=== PATIENT | female | born 1970 | race African-American/Black ===

== ENCOUNTER 2017-09-07 21:57 | Emergency (ER) | payer OTHER, SELFPAY | END 2017-09-07 22:28 | disposition home or self-care (01) | LOC: SCSER 21:57 | DX: I10 Essential (primary) hypertension (principal) | CPT/HCPCS: 99283 ==

== ENCOUNTER 2017-12-11 09:51 | Emergency (ER) | payer OTHER, SELFPAY ==
[2017-12-11] MEDS ORDERED: Acetaminophen 500 MG TAB ONE (10:34)
[2017-12-11 10:59] LABS: #Basophils 0.1 thou/uL (0.0-0.2); #Eosinphils 0.1 thou/uL (0.0-0.7); #Monocytes 0.4 thou/uL (0.11-0.59); #Neutrophils 3.4 thou/uL (1.40-6.50); %Eosinophils 2.3 % (0.0-10.0); %Lymphocytes 33.3 % (21.0-51.0); %Monocytes 6.2 % (0.0-10.0); %Neutrophils 57.1 % (42.0-75.0); Hemoglobin 11.9 g/dL (12.0-16.0); Mean Corpuscular Hemoglobin 30.1 pg (27.0-31.0); Mean Corpuscular Volume 91.2 fL (78.0-98.0); Mean Platelet Volume 7.9 fL (7.4-10.4); Platelet Count 230 thou/uL (130-400); RBC Distribution Width 11.4 % (11.5-14.5); Red Blood Cell (RBC) Count 3.94 mill/uL (4.20-5.40)
[2017-12-11 11:12] LABS: ALT (SGPT) 14 U/L (8-55); AST (SGOT) 16 U/L (5-34); Albumin 3.4 g/dL (3.5-5.0); Alkaline Phosphatase 55 U/L (40-150); Anion Gap 9 mmol/L (10-20); BUN (Urea Nitrogen) 13 mg/dL (7.0-18.7); Bilirubin, Total 0.2 mg/dL (0.2-1.2); Calc. Creatinine Clearance 0 mL/min (70-130); Calcium 8.8 mg/dL (7.8-10.44); Carbon Dioxide 25 mmol/L (22-29); Chloride 107 mmol/L (98-107); Estimated GFR-MDRD Greater than 90; Globulin 3.3 g/dL (2.4-3.5); Glucose 85 mg/dL (70-105); Potassium 3.9 mmol/L (3.5-5.1); Protein, Total 6.7 g/dL (6.0-8.3); Sodium 137 mmol/L (136-145)
[2017-12-11 11:17] LABS: Troponin I Less than 0.010 ng/mL (< 0.028)
--- NOTE | 2017-12-11 11:47 | RAD ---
FRONTAL VIEW CHEST: INDICATION: Chest pain. COMPARISON: Reference is made to 11/17/12. FINDINGS: There is prominence of the cardiac silhouette, stable-appearing. No lobar consolidation, effusion, o r pneumothorax. IMPRESSION: Stable chest. POS: [facility]
[2017-12-11] MEDS ORDERED: Ibuprofen 200 MG TAB ONE (13:35)
--- NOTE | 2017-12-11 13:36 | CT ---
CTA OF THE THORAX WITH IV CONTRAST AND 3D REFORMATTED IMAGING: INDICATION: Chest pain. FINDINGS: No central or segmental pulmonary embolus is evident. No confluent airspace opacity or pleural effusion is evident. No enlarged lymph nodes is noted. There is mild aneurysmal dilatation of the ascending aorta measuring up to 4.5 cm. There is mild ane urysmal dilatation at the aortic arch measuring up to 3 cm. There is mild aneurysmal dilatation of t he distal thoracic aorta measuring up to 3.5 cm. There is a small hiatal hernia. Visualized upper abdomen reveals no definite acute abnormality. No acute osseous abnormality is evident. IMPRESSION: 1. No central or segmental pulmonary embolus. 2. Mild aneurysmal dilatation of the thoracic aorta. POS: [facility]
[2017-12-11] MEDS ORDERED: ISOVUE-370 76%-LOCM 1 ML ONE (14:56)
== END 2017-12-11 15:35 | disposition home or self-care (01) ==
LOC: ERS 09:51
DX: I71.2 Thoracic aortic aneurysm, without rupture (principal); I10 Essential (primary) hypertension
CPT/HCPCS: 36415; 71045; 71275; 80053; 82553; 83880; 84484; 84702; 85025; 85379; 93005; 96360; 96361

== ENCOUNTER 2018-02-11 10:26 | Emergency (ER) | payer SELFPAY | END 2018-02-11 11:15 | disposition home or self-care (01) | LOC: SCSER 10:26 | DX: L30.1 Dyshidrosis [pompholyx] (principal); I10 Essential (primary) hypertension; Z79.899 Other long term (current) drug therapy | CPT/HCPCS: 99282 ==

== ENCOUNTER 2018-03-09 01:10 | Emergency (ER) | payer SELFPAY ==
[2018-03-09 02:14] LABS: #Basophils 0.1 thou/uL (0.0-0.2); #Eosinphils 0.2 thou/uL (0.0-0.7); #Monocytes 0.4 thou/uL (0.11-0.59); #Neutrophils 3.3 thou/uL (1.40-6.50); %Eosinophils 3.4 % (0.0-10.0); %Lymphocytes 34.1 % (21.0-51.0); %Monocytes 5.9 % (0.0-10.0); %Neutrophils 55.6 % (42.0-75.0); Hemoglobin 11.8 g/dL (12.0-16.0); Mean Corpuscular HGB CONC 32.4 g/dL (32.0-36.0); Mean Corpuscular Hemoglobin 29.8 pg (27.0-31.0); Mean Corpuscular Volume 92.1 fL (78.0-98.0); Mean Platelet Volume 8.2 fL (7.4-10.4); Platelet Count 270 thou/uL (130-400); RBC Distribution Width 11.3 % (11.5-14.5); Red Blood Cell (RBC) Count 3.94 mill/uL (4.20-5.40); White Blood Cell (WBC) Count 5.9 thou/uL (4.8-10.8)
[2018-03-09] MEDS ORDERED: Ketorolac Tromethamine 30 MG/ML VIAL ONE (02:26)
[2018-03-09] MEDS ORDERED: Methocarbamol 1 GM in Sodium Chloride 0.9% 250 ML 250 ML IVPB SCH (02:30)
[2018-03-09 02:35] LABS: ALT (SGPT) 20 U/L (8-55); AST (SGOT) 21 U/L (5-34); Albumin 3.5 g/dL (3.5-5.0); Alkaline Phosphatase 60 U/L (40-150); Anion Gap 14 mmol/L (10-20); BUN (Urea Nitrogen) 20 mg/dL (7.0-18.7); Bilirubin, Total 0.3 mg/dL (0.2-1.2); Calc. Creatinine Clearance 0 mL/min (70-130); Calcium 8.9 mg/dL (7.8-10.44); Carbon Dioxide 27 mmol/L (22-29); Chloride 103 mmol/L (98-107); Estimated GFR-MDRD Greater than 90; Globulin 3.8 g/dL (2.4-3.5); Glucose 100 mg/dL (70-105); Potassium 3.7 mmol/L (3.5-5.1); Protein, Total 7.3 g/dL (6.0-8.3); Sodium 140 mmol/L (136-145)
[2018-03-09 02:39] LABS: CKMB 1.3 ng/mL (0-6.6); Troponin I Less than 0.010 ng/mL (< 0.028)
--- NOTE | 2018-03-09 08:24 | RAD ---
PORTABLE CHEST: DATE: 03/09/2018. PROVIDED CLINICAL HISTORY: Chest pain. FINDINGS: Comparison 12/11/2017. Cardiac and mediastinal silhouette is within normal limits. Lungs appear lion r. No pleural fluid or pneumothorax apparent. IMPRESSION: No evidence for an acute cardiopulmonary process. POS: [facility]
== END 2018-03-09 03:49 | disposition home or self-care (01) ==
LOC: ERS 01:10
DX: M54.2 Cervicalgia (principal); I10 Essential (primary) hypertension; Z79.899 Other long term (current) drug therapy
CPT/HCPCS: 36415; 71045; 80053; 82553; 84484; 85025; 93005; 96365; 96375; J1885; J2800; J7050

== ENCOUNTER 2018-03-11 00:45 | Emergency (ER) | payer SELFPAY ==
[2018-03-11 01:47] LABS: #Basophils 0.1 thou/uL (0.0-0.2); #Eosinphils 0.2 thou/uL (0.0-0.7); #Lymphocytes 1.8 thou/uL (1.20-3.40); #Monocytes 0.4 thou/uL (0.11-0.59); %Basophils 1.5 % (0.0-1.0); %Eosinophils 3.3 % (0.0-10.0); %Lymphocytes 27.5 % (21.0-51.0); %Monocytes 6.7 % (0.0-10.0); Hemoglobin 11.1 g/dL (12.0-16.0); Mean Corpuscular HGB CONC 32.1 g/dL (32.0-36.0); Mean Corpuscular Hemoglobin 29.9 pg (27.0-31.0); Mean Corpuscular Volume 93.1 fL (78.0-98.0); Mean Platelet Volume 8.3 fL (7.4-10.4); Platelet Count 252 thou/uL (130-400); RBC Distribution Width 11.3 % (11.5-14.5); Red Blood Cell (RBC) Count 3.73 mill/uL (4.20-5.40); White Blood Cell (WBC) Count 6.5 thou/uL (4.8-10.8)
[2018-03-11 02:09] LABS: ALT (SGPT) 21 U/L (8-55); AST (SGOT) 22 U/L (5-34); Albumin 3.2 g/dL (3.5-5.0); Alkaline Phosphatase 54 U/L (40-150); Anion Gap 11 mmol/L (10-20); BUN (Urea Nitrogen) 16 mg/dL (7.0-18.7); Bilirubin, Total 0.2 mg/dL (0.2-1.2); Calc. Creatinine Clearance 0 mL/min (70-130); Calcium 8.6 mg/dL (7.8-10.44); Carbon Dioxide 26 mmol/L (22-29); Chloride 106 mmol/L (98-107); Estimated GFR-MDRD Greater than 90; Globulin 3.5 g/dL (2.4-3.5); Glucose 108 mg/dL (70-105); Lipase 71 U/L (8-78); Potassium 3.7 mmol/L (3.5-5.1); Protein, Total 6.7 g/dL (6.0-8.3); Sodium 139 mmol/L (136-145)
[2018-03-11] MEDS ORDERED: Ketorolac Tromethamine 30 MG/ML VIAL ONE ×2 (02:47→06:26)
[2018-03-11] MEDS ORDERED: Morphine 4 MG/ML VIAL ONE (03:51)
[2018-03-11] MEDS ORDERED: Ondansetron HCl/PF 4 MG/2 ML Vial ONE (03:51)
[2018-03-11 06:16] LABS: Bilirubin Negative (Negative); Blood, Urine Moderate (Negative); Clarity CLEAR (Clear); Glucose, Urine (Dipstick) Negative (Negative); Leukocyte Negative (Negative); Nitrite Negative (Negative); Protein, Urine (Dipstick) Negative (Neg-Trace); Specific Gravity, Urine 1.016 (1.002-1.036); Urobilinogen 0.2 mg/dL (0.2-1.0); pH, Urine 6.5 (5.0-9.0)
[2018-03-11 06:18] LABS: Pregnancy Test - Urine (BHCG) Negative (Negative); Pregu Control Background? CLEAR/WHITE (CLR/WHITE); Pregu Control Bar Appear? YES (CONTROL BAR); Specific Gravity 1.016 (1.002-1.036)
[2018-03-11 06:19] LABS: Bacteria/HPF None Seen HPF (None Seen); Hyaline Casts/LPF 0-3 HYALINE CAST LPF (0-3 Hyaline); Squamous Epithelial 0-3 HPF (0-3); WBC/HPF 0-3 HPF (0-3)
[2018-03-11 06:23] LABS: Yeast-AUWi Flag 31.6 (0-25.0)
[2018-03-11 07:04] LABS: Yeast-All Forms None Seen HPF (None Seen)
--- NOTE | 2018-03-11 07:25 | ULT ---
RIGHT UPPER QUADRANT ULTRASOUND: INDICATION: Right upper quadrant pain. COMPARISON: None. FINDINGS: No focal hepatic lesion is evident. Visualized gallbladder is normal-appearing. Common bile duct me asured 4 mm. No sonographic Godfrey's sign was reported. The right kidney measured 9.8 cm. Visualiz ed pancreas appeared within normal limits. No free fluid is evident. IMPRESSION: No acute sonographic abnormality within the right upper quadrant. POS: [facility]
== END 2018-03-11 07:20 | disposition home or self-care (01) ==
LOC: ERS 00:45
DX: M54.6 Pain in thoracic spine (principal); I10 Essential (primary) hypertension; Z79.899 Other long term (current) drug therapy; Z79.1 Long term (current) use of non-steroidal anti-inflammatories (NSAID)
CPT/HCPCS: 36415; 76705; 80053; 81003; 81015; 81025; 83690; 85025; 96374; 96375; J1885; J2270; J2405

== ENCOUNTER 2020-08-25 13:47 | Emergency (ER) | payer OTHER, SELFPAY ==
[~2020-08-25 13:47] MED LIST: Iopamidol-370 76% 500 ML 1 ML ONE
[2020-08-25 14:40] LABS: #Basophils 0.1 thou/uL (0.0-0.2); #Eosinphils 0.1 thou/uL (0.0-0.7); #Lymphocytes 2.1 thou/uL (1.20-3.40); #Monocytes 0.3 thou/uL (0.11-0.59); #Neutrophils 4.4 thou/uL (1.40-6.50); %Basophils 0.8 % (0.0-1.0); %Eosinophils 1.8 % (0.0-10.0); %Lymphocytes 29.5 % (21.0-51.0); %Monocytes 4.6 % (0.0-10.0); %Neutrophils 63.3 % (42.0-75.0); Hemoglobin 11.7 g/dL (12.0-16.0); Mean Corpuscular HGB CONC 33.3 g/dL (32.0-36.0); Mean Corpuscular Volume 93.2 fL (78.0-98.0); Mean Platelet Volume 8.6 fL (7.4-10.4); Platelet Count 240 thou/uL (130-400); RBC Distribution Width 10.9 % (11.5-14.5); Red Blood Cell (RBC) Count 3.76 mill/uL (4.20-5.40); White Blood Cell (WBC) Count 6.9 thou/uL (4.8-10.8)
[2020-08-25 15:05] LABS: ALT (SGPT) 10 U/L (8-55); AST (SGOT) 14 U/L (5-34); Albumin 3.6 g/dL (3.5-5.0); Alkaline Phosphatase 41 U/L (40-110); Anion Gap 14 mmol/L (10-20); BUN (Urea Nitrogen) 15 mg/dL (7.0-18.7); Bilirubin, Total 0.4 mg/dL (0.2-1.2); Calc. Creatinine Clearance 0 mL/min (70-130); Calcium 9.1 mg/dL (7.8-10.44); Carbon Dioxide 28 mmol/L (22-29); Chloride 100 mmol/L (98-107); Globulin 3.6 g/dL (2.4-3.5); Glucose 89 mg/dL (70-105); Potassium 3.7 mmol/L (3.5-5.1); Protein, Total 7.2 g/dL (6.0-8.3); Sodium 138 mmol/L (136-145)
[2020-08-25] MEDS ORDERED: Ondansetron ODT 4 MG TAB ONE (16:00)
[2020-08-25] MEDS ORDERED: Acetaminophen 500 MG TAB ONE (16:00)
[2020-08-25 16:50] LABS: BHCG - Serum Negative (NEGATIVE); Pregs Control Background? CLEAR/WHITE (CLR/WHITE); Pregs Control Bar Appear? YES (CONTROL BAR)
[2020-08-25] MEDS ORDERED: Ketorolac Tromethamine 30 MG/ML VIAL ONE (17:54)
[2020-08-25 18:12] LABS: Bilirubin Negative (Negative); Blood, Urine Negative (Negative); Clarity Turbid (Clear); Glucose, Urine (Dipstick) Normal (Negative); Ketone, Urine Negative (Negative); Leukocyte Negative Leu/uL (Negative); Nitrite Negative (Negative); Protein, Urine (Dipstick) Negative (Neg-Trace); Specific Gravity, Urine 1.031 (1.002-1.036); Urobilinogen Normal mg/dL (Less than 2); pH, Urine 6.5 (5.0-9.0)
== END 2020-08-25 19:02 | disposition home or self-care (01) ==
LOC: ERS 13:47
DX: R19.00 Intra-abdominal and pelvic swelling, mass and lump, unspecified site (principal); I10 Essential (primary) hypertension; Z87.891 Personal history of nicotine dependence; Z79.899 Other long term (current) drug therapy
CPT/HCPCS: 36415; 74177; 76856; 80053; 81003; 83690; 84703; 85025; 96374; J1885; Q0162; Q9967

== ENCOUNTER 2021-02-08 18:39 | Emergency (ER) | payer OTHER ==
[~2021-02-08 18:39] MED LIST changes: +Iopamidol 370 76% 100 ML VIAL ONE; -Iopamidol-370 76% 500 ML 1 ML ONE
[2021-02-08 19:23] LABS: #Eosinphils 0.1 thou/uL (0.0-0.7); #Lymphocytes 1.1 thou/uL (1.20-3.40); #Monocytes 0.4 thou/uL (0.11-0.59); #Neutrophils 8.9 thou/uL (1.40-6.50); %Basophils 0.2 % (0.0-1.0); %Eosinophils 0.7 % (0.0-10.0); %Lymphocytes 10.6 % (21.0-51.0); %Monocytes 4.2 % (0.0-10.0); %Neutrophils 84.4 % (42.0-75.0); Hemoglobin 8.9 g/dL (12.0-16.0); Mean Corpuscular HGB CONC 33.7 g/dL (32.0-36.0); Mean Corpuscular Hemoglobin 29.9 pg (27.0-31.0); Mean Corpuscular Volume 88.8 fL (78.0-98.0); Mean Platelet Volume 8.6 fL (7.4-10.4); Platelet Count 218 thou/uL (130-400); RBC Distribution Width 15.2 % (11.5-14.5); Red Blood Cell (RBC) Count 2.98 mill/uL (4.20-5.40); White Blood Cell (WBC) Count 10.5 thou/uL (4.8-10.8)
[2021-02-08] MEDS ORDERED: Piperacillin/Tazobactam 4.5 GM in Sodium Chloride 0.9% 100 ML IVPB SCH (19:45)
[2021-02-08 19:46] LABS: ALT (SGPT) 14 U/L (8-55); AST (SGOT) 20 U/L (5-34); Albumin 3.6 g/dL (3.5-5.0); Alkaline Phosphatase 72 U/L (40-110); Anion Gap 14 mmol/L (10-20); BUN (Urea Nitrogen) 7 mg/dL (7.0-18.7); Bilirubin, Total 1.5 mg/dL (0.2-1.2); Calc. Creatinine Clearance 0 mL/min (70-130); Calcium 8.9 mg/dL (7.8-10.44); Carbon Dioxide 23 mmol/L (22-29); Chloride 101 mmol/L (98-107); Globulin 3.2 g/dL (2.4-3.5); Glucose 111 mg/dL (70-105); Protein, Total 6.8 g/dL (6.0-8.3); Sodium 134 mmol/L (136-145)
[2021-02-08 19:54] LABS: CK (CPK) 128 U/L (29-168); Lipase 40 U/L (8-78)
[2021-02-08] MEDS ORDERED: Acetaminophen 500 MG TAB ONE (20:01)
[2021-02-08] MEDS ORDERED: Piperacillin/Tazobactam 4.5 GM VIAL ONE (20:01)
[2021-02-08 21:23] LABS: Bilirubin Negative (Negative); Blood, Urine Negative (Negative); Clarity Clear (Clear); Glucose, Urine (Dipstick) Normal (Negative); Ketone, Urine Negative (Negative); Leukocyte Negative Leu/uL (Negative); Nitrite Negative (Negative); Protein, Urine (Dipstick) Negative (Neg-Trace); Specific Gravity, Urine 1.032 (1.002-1.036); Urobilinogen Normal mg/dL (Less than 2)
[2021-02-08] MEDS ORDERED: Fentanyl 100 MCG/2 ML VIAL ONE (22:36)
[2021-02-08 23:13] LABS: SARS-CoV-2 NAA Rapid Test Not Detected (NotDetected)
[2021-02-09] MEDS ORDERED: Morphine 2 MG/ML VIAL ONE (01:09)
== END 2021-02-09 01:50 | disposition short-term general hospital (02) ==
LOC: ERS 18:39
DX: T81.41XA Infection following a procedure, superficial incisional surgical site, initial encounter (principal); Z20.822 Contact with and (suspected) exposure to COVID-19; Z79.899 Other long term (current) drug therapy; I10 Essential (primary) hypertension; Z87.891 Personal history of nicotine dependence
CPT/HCPCS: 0240U; 51701; 71045; 74177; 80053; 81003; 82550; 83605; 83690; 84145; 85025; 87040; 87086; 96365; 96366; 96367; 96375; J2270; J2543; J3010; J3370; J3490; J7030; Q9967

== ENCOUNTER 2021-05-30 06:55 | Inpatient (IN) | payer OTHER, SELFPAY ==
[2021-05-30] MEDS ORDERED: Ondansetron PF 4 MG/2 ML Vial ONE (07:28)
[2021-05-30] MEDS ORDERED: Morphine 4 MG/ML VIAL ONE (07:28)
[2021-05-30 07:37] LABS: #Eosinphils 0.1 thou/uL (0.0-0.7); #Lymphocytes 1.3 thou/uL (1.20-3.40); #Monocytes 0.5 thou/uL (0.11-0.59); #Neutrophils 3.1 thou/uL (1.40-6.50); %Basophils 0.2 % (0.0-1.0); %Eosinophils 1.6 % (0.0-10.0); %Lymphocytes 26.1 % (21.0-51.0); %Monocytes 9.6 % (0.0-10.0); %Neutrophils 62.5 % (42.0-75.0); Hemoglobin 11.6 g/dL (12.0-16.0); Mean Corpuscular HGB CONC 33.4 g/dL (32.0-36.0); Mean Corpuscular Volume 86.8 fL (78.0-98.0); Platelet Count 215 thou/uL (130-400); RBC Distribution Width 15.4 % (11.5-14.5)
[2021-05-30 07:59] LABS: ALT (SGPT) 48 U/L (8-55); AST (SGOT) 44 U/L (5-34); Albumin 3.7 g/dL (3.5-5.0); Alkaline Phosphatase 77 U/L (40-110); Anion Gap 13 mmol/L (10-20); BUN (Urea Nitrogen) 24 mg/dL (7.0-18.7); Bilirubin, Total 0.3 mg/dL (0.2-1.2); Calc. Creatinine Clearance 0 mL/min (70-130); Calcium 9.8 mg/dL (7.8-10.44); Carbon Dioxide 25 mmol/L (22-29); Chloride 103 mmol/L (98-107); Globulin 4.4 g/dL (2.4-3.5); Glucose 97 mg/dL (70-105); Lipase 105 U/L (8-78); Potassium 4.2 mmol/L (3.5-5.1); Protein, Total 8.1 g/dL (6.0-8.3); Sodium 137 mmol/L (136-145)
[2021-05-30] MEDS ORDERED: HYDROmorphone 0.5 MG/0.5 ML SYRINGE ONE ×2 (08:57→12:25)
[2021-05-30 09:31] LABS: Bilirubin Negative (Negative); Blood, Urine Negative (Negative); Clarity Clear (Clear); Glucose, Urine (Dipstick) Normal (Negative); Ketone, Urine Negative (Negative); Leukocyte Negative Leu/uL (Negative); Nitrite Negative (Negative); Protein, Urine (Dipstick) Negative (Neg-Trace); Urobilinogen Normal mg/dL (Less than 2); pH, Urine 6.5 (5.0-9.0)
[2021-05-30 09:32] LABS: Specific Gravity, Urine 1.045 (1.002-1.036)
[2021-05-30] MEDS ORDERED: Iopamidol 370 76% 100 ML VIAL ONE (10:22)
[2021-05-30] MEDS ORDERED: Haloperidol Lactate 5 MG/ML VIAL ONE (10:59)
[2021-05-30] MEDS ORDERED: diphenhydrAMINE 50 MG/ML VIAL ONE (11:00)
[2021-05-30] MEDS ORDERED: Ondansetron PF 4 MG/2 ML Vial IVP PRN (12:40)
[2021-05-30] MEDS: Lactated Ringer's 1,000 ML IV SCH (14:34)
[2021-05-30] MEDS: Morphine 4 MG/ML VIAL SLOW IVP PRN ×2 (14:34→20:41)
[2021-05-30] MEDS ORDERED: hydrALAZINE 20 MG/ML VIAL SLOW IVP PRN (14:43)
[2021-05-30 14:58] VITALS: BMI 53.9
[2021-05-30] MEDS: HYDROcodone/Acetaminophen 10/325 mg Tablet PO PRN (17:20)
[2021-05-30] MEDS: Famotidine/PF 20 mg/2ml Vial SLOW IVP SCH (20:41)
[2021-05-30] MEDS: Metoprolol Tartrate 25 MG TAB PO SCH (20:41)
[2021-05-30 23:36] LABS: SARS-CoV-2 PCR by NAA DETECTED (NotDetected)
[2021-05-31] MEDS ORDERED: Ascorbic Acid 500 mg Chewable Tablet PO SCH (00:15)
[2021-05-31] MEDS ORDERED: Cholecalciferol (Vitamin D3) 400 UNITS TAB PO SCH (00:15)
[2021-05-31] MEDS ORDERED: Zinc Sulfate 220 MG CAP PO SCH (00:15)
[2021-05-31] MEDS: Lactated Ringer's 1,000 ML IV SCH ×3 (00:44→20:11)
[2021-05-31 07:06] LABS: #Eosinphils 0.1 thou/uL (0.0-0.7); #Lymphocytes 0.7 thou/uL (1.20-3.40); #Monocytes 0.5 thou/uL (0.11-0.59); %Basophils 0.3 % (0.0-1.0); %Lymphocytes 13.7 % (21.0-51.0); %Monocytes 9.2 % (0.0-10.0); %Neutrophils 75.9 % (42.0-75.0); Hemoglobin 10.7 g/dL (12.0-16.0); Mean Corpuscular HGB CONC 32.3 g/dL (32.0-36.0); Mean Corpuscular Hemoglobin 28.5 pg (27.0-31.0); Mean Corpuscular Volume 88.3 fL (78.0-98.0); Mean Platelet Volume 8.7 fL (7.4-10.4); Platelet Count 195 thou/uL (130-400); RBC Distribution Width 15.4 % (11.5-14.5); Red Blood Cell (RBC) Count 3.74 mill/uL (4.20-5.40); White Blood Cell (WBC) Count 5.3 thou/uL (4.8-10.8)
[2021-05-31 07:33] LABS: Anion Gap 12 mmol/L (10-20); BUN (Urea Nitrogen) 11 mg/dL (7.0-18.7); Calc. Creatinine Clearance 190 mL/min (70-130); Calcium 9.3 mg/dL (7.8-10.44); Carbon Dioxide 27 mmol/L (22-29); Chloride 100 mmol/L (98-107); Glucose 95 mg/dL (70-105); Lipase 85 U/L (8-78); Sodium 135 mmol/L (136-145)
[2021-05-31 07:41] LABS: ALT (SGPT) 35 U/L (8-55); AST (SGOT) 21 U/L (5-34); Albumin 3.5 g/dL (3.5-5.0); Alkaline Phosphatase 75 U/L (40-110); Bilirubin, Direct 0.2 mg/dL (0.1-0.3); Bilirubin, Total 0.5 mg/dL (0.2-1.2); Lipase 85 U/L (8-78); Protein, Total 7.4 g/dL (6.0-8.3)
[2021-05-31 07:44] LABS: Troponin I Less than 0.010 ng/mL (< 0.028)
[2021-05-31] MEDS: Zinc Sulfate 220 MG CAP PO SCH (08:45)
[2021-05-31] MEDS: Famotidine/PF 20 mg/2ml Vial SLOW IVP SCH ×2 (08:45→20:32)
[2021-05-31] MEDS: Ascorbic Acid 500 mg Chewable Tablet PO SCH (08:46)
[2021-05-31] MEDS: Metoprolol Tartrate 25 MG TAB PO SCH ×2 (08:46→22:11)
[2021-05-31] MEDS: Cholecalciferol (Vitamin D3) 400 UNITS TAB PO SCH (08:46)
[2021-05-31] MEDS: Hydrochlorothiazide 25 MG TAB PO SCH (08:46)
[2021-05-31] MEDS: guaiFENesin ER 600 MG TAB PO SCH ×2 (10:42→20:32)
[2021-05-31] MEDS: Acetaminophen 325 MG TAB PO PRN ×2 (16:17→20:33)
[2021-05-31 17:21] LABS: Cardiac Risk 3.7 (Less than 4.5)
[2021-05-31] MEDS: HYDROcodone/Acetaminophen 10/325 mg Tablet PO PRN (19:15)
[2021-06-01] MEDS: Acetaminophen 325 MG TAB PO PRN (04:43)
[2021-06-01] MEDS: Lactated Ringer's 1,000 ML IV SCH ×2 (04:45→07:40)
[2021-06-01] MEDS: Famotidine/PF 20 mg/2ml Vial SLOW IVP SCH (07:39)
[2021-06-01] MEDS: guaiFENesin ER 600 MG TAB PO SCH (07:40)
[2021-06-01] MEDS: Hydrochlorothiazide 25 MG TAB PO SCH (07:40)
[2021-06-01] MEDS: Zinc Sulfate 220 MG CAP PO SCH (07:40)
[2021-06-01] MEDS: Ascorbic Acid 500 mg Chewable Tablet PO SCH (07:40)
[2021-06-01] MEDS: Metoprolol Tartrate 25 MG TAB PO SCH (07:40)
[2021-06-01] MEDS: Cholecalciferol (Vitamin D3) 400 UNITS TAB PO SCH (07:40)
[2021-06-01 12:04] VITALS: BP 123/82; TEMP 99.8
[2021-06-01] MEDS: HYDROcodone/Acetaminophen 10/325 mg Tablet PO PRN (13:00)
== END 2021-06-01 13:30 | disposition home or self-care (01) | DRG 438 ==
LOC: ERS 06:55 → SJJU 12:28 → OBSVTOIN 06-01 12:02
PROVIDERS: ADMIT Internal Medicine; ATTEND Family Medicine
DX: K85.90 Acute pancreatitis without necrosis or infection, unspecified (principal); U07.1 COVID-19; E87.1 Hypo-osmolality and hyponatremia; Z68.43 Body mass index [BMI] 50.0-59.9, adult; I10 Essential (primary) hypertension; E66.01 Morbid (severe) obesity due to excess calories; K44.9 Diaphragmatic hernia without obstruction or gangrene; D64.9 Anemia, unspecified; Z88.8 Allergy status to other drugs, medicaments and biological substances; Z79.899 Other long term (current) drug therapy; Z90.710 Acquired absence of both cervix and uterus
CPT/HCPCS: 36415; 71045; 74177; 76705; 80048; 80053; 80061; 80076; 81003; 83036; 83690; 84484; 85025; 93005; 96375; 96376; G0378; J1170; J1200; J1630; J2270; J2405; J7120; Q9967; S0028; U0003; U0005

== ENCOUNTER 2021-12-11 10:41 | Observation (INO) | payer OTHER, SELFPAY ==
[2021-12-11] MEDS ORDERED: Meclizine HCl 25 MG TAB ONE (12:15)
[2021-12-11] MEDS ORDERED: Ondansetron ODT 4 MG TAB ONE (12:15)
[2021-12-11 12:52] LABS: #Basophils 0.1 thou/uL (0.0-0.2); #Eosinphils 0.1 thou/uL (0.0-0.7); #Lymphocytes 1.9 thou/uL (1.20-3.40); #Monocytes 0.4 thou/uL (0.11-0.59); #Neutrophils 4.2 thou/uL (1.40-6.50); %Basophils 0.9 % (0.0-1.0); %Eosinophils 1.8 % (0.0-10.0); %Lymphocytes 28.9 % (21.0-51.0); %Monocytes 5.9 % (0.0-10.0); %Neutrophils 62.6 % (42.0-75.0); Mean Corpuscular HGB CONC 31.8 g/dL (32.0-36.0); Mean Corpuscular Hemoglobin 30.4 pg (27.0-31.0); Mean Corpuscular Volume 95.4 fL (78.0-98.0); Mean Platelet Volume 8.7 fL (7.4-10.4); Platelet Count 251 thou/uL (130-400); RBC Distribution Width 11.2 % (11.5-14.5); Red Blood Cell (RBC) Count 3.95 mill/uL (4.20-5.40); White Blood Cell (WBC) Count 6.7 thou/uL (4.8-10.8)
[2021-12-11] MEDS ORDERED: Iopamidol-370 76% 500 ML 1 ML ONE (12:59)
[2021-12-11 13:19] LABS: Anion Gap 14 mmol/L (10-20); BUN (Urea Nitrogen) 14 mg/dL (9.8-20.1); Calc. Creatinine Clearance 0 mL/min (70-130); Carbon Dioxide 29 mmol/L (22-29); Chloride 100 mmol/L (98-107); Potassium 3.8 mmol/L (3.5-5.1); Sodium 139 mmol/L (136-145)
[2021-12-11 13:20] LABS: ALT (SGPT) 12 U/L (8-55); AST (SGOT) 14 U/L (5-34); Albumin 3.7 g/dL (3.5-5.0); Alkaline Phosphatase 74 U/L (40-110); Bilirubin, Total 0.3 mg/dL (0.2-1.2); Calcium 9.3 mg/dL (7.8-10.44); Estimated GFR 92; Globulin 3.9 g/dL (2.4-3.5); Glucose 82 mg/dL (70-105); Protein, Total 7.6 g/dL (6.0-8.3)
[2021-12-11] MEDS ORDERED: Acetaminophen 500 MG TAB ONE ×2 (13:26)
[2021-12-11] MEDS ORDERED: Aspirin Chewable 81 MG TAB ONE (13:37)
[2021-12-11] MEDS ORDERED: hydrALAZINE 20 MG/ML VIAL SLOW IVP PRN (13:42)
[2021-12-11] MEDS ORDERED: Ondansetron PF 4 MG/2 ML Vial IVP PRN (14:22)
[2021-12-11 16:04] VITALS: BMI 58.8
[2021-12-11] MEDS: Fioricet 325/50/40 mg Tablet PO PRN (19:43)
[2021-12-11] MEDS ORDERED: Atorvastatin Calcium 40 MG TAB PO SCH (21:00)
[2021-12-12] MEDS ORDERED: Acetaminophen 325 MG TAB PO PRN (05:40)
[2021-12-12] MEDS ORDERED: Enoxaparin Sodium 40 MG/0.4 ML SYRINGE SC SCH (09:00)
[2021-12-12] MEDS ORDERED: Aspirin 325 mg Enteric Coated Tablet PO SCH (09:00)
[2021-12-12] MEDS ORDERED: Mag-Al Plus 1200 MG/1200 MG/120 MG/30 ML UDCUP PO PRN (09:26)
[2021-12-12] MEDS ORDERED: Metoprolol Tartrate 25 MG TAB PO SCH ×2 (09:45→21:00)
[2021-12-12] MEDS ORDERED: Hydrochlorothiazide 25 MG TAB PO SCH (09:45)
[2021-12-12] MEDS: Fioricet 325/50/40 mg Tablet PO PRN (09:56)
[2021-12-12 11:56] VITALS: TEMP 98.2
[2021-12-12 14:47] VITALS: BP 129/81
[2021-12-12] MEDS ORDERED: Meclizine HCl 25 MG TAB PO SCH (15:00)
[2021-12-13] MEDS ORDERED: Hydrochlorothiazide 25 MG TAB PO SCH (09:00)
== END 2021-12-12 16:38 | disposition home or self-care (01) ==
LOC: ERS 10:41 → NEURO 13:48 → OBSVTOIN 15:53 → INTOOBSV 15:53 → NEURO 18:39
PROVIDERS: ADMIT Internal Medicine; ATTEND Internal Medicine
DX: R42 Dizziness and giddiness (principal); I10 Essential (primary) hypertension; F12.11 Cannabis abuse, in remission; D64.9 Anemia, unspecified; K85.90 Acute pancreatitis without necrosis or infection, unspecified; E66.01 Morbid (severe) obesity due to excess calories; Z68.43 Body mass index [BMI] 50.0-59.9, adult; Z87.891 Personal history of nicotine dependence; Z79.899 Other long term (current) drug therapy; Z88.8 Allergy status to other drugs, medicaments and biological substances; Z20.822 Contact with and (suspected) exposure to COVID-19
CPT/HCPCS: 36415; 70450; 70496; 70498; 70551; 80053; 80061; 84484; 85025; 93005; 96372; G0378; J1650; Q0162; Q9967; U0003; U0005

== ENCOUNTER 2023-04-10 13:20 | Emergency (ER) | payer OTHER, SELFPAY ==
[2023-04-10] MEDS ORDERED: Ketorolac Tromethamine 30 MG/ML VIAL ONE (15:23)
[2023-04-10] MEDS ORDERED: Metoclopramide HCl 10 MG/2 ML VIAL ONE (15:23)
[2023-04-10 15:27] LABS: #Eosinphils 0.2 thou/uL (0.0-0.7); #Monocytes 0.3 thou/uL (0.11-0.59); #Neutrophils 3.4 thou/uL (1.40-6.50); %Basophils 0.6 % (0.0-1.0); %Eosinophils 2.9 % (0.0-10.0); %Lymphocytes 37.7 % (21.0-51.0); %Monocytes 4.3 % (0.0-10.0); %Neutrophils 54.3 % (42.0-75.0); Hematocrit 36.8 % (36.0-47.0); Hemoglobin 11.8 g/dL (12.0-16.0); Mean Corpuscular HGB CONC 32.1 g/dL (32.0-36.0); Mean Corpuscular Volume 90.4 fl (78.0-98.0); Mean Platelet Volume 11.3 fL (7.4-10.4); Platelet Count 231 10x3/uL (130-400); RBC Distribution Width 12.5 % (11.5-14.5); Red Blood Cell (RBC) Count 4.07 mill/uL (4.20-5.40); White Blood Cell (WBC) Count 6.3 10x3/uL (4.8-10.8)
[2023-04-10 15:51] LABS: ALT (SGPT) 16 U/L (8-55); AST (SGOT) 15 U/L (5-34); Albumin 3.9 g/dL (3.5-5.0); Alkaline Phosphatase 105 U/L (40-110); Anion Gap 13 mmol/L (10-20); BUN (Urea Nitrogen) 10 mg/dL (9.8-20.1); Bilirubin, Total 0.6 mg/dL (0.2-1.2); Calc. Creatinine Clearance 0 mL/min (70-130); Calcium 9.1 mg/dL (7.8-10.44); Carbon Dioxide 26 mmol/L (22-29); Chloride 105 mmol/L (98-107); Estimated GFR 82; Globulin 3.6 g/dL (2.4-3.5); Glucose 104 mg/dL (70-105); Potassium 3.6 mmol/L (3.5-5.1); Protein, Total 7.5 g/dL (6.0-8.3); Sodium 140 mmol/L (136-145)
[2023-04-10 15:54] LABS: Troponin I Less than 0.010 ng/mL (< 0.028)
== END 2023-04-10 17:00 | disposition home or self-care (01) ==
LOC: ERS 13:20
DX: I10 Essential (primary) hypertension (principal); M54.50 Low back pain, unspecified; R51.9 Headache, unspecified; K21.9 Gastro-esophageal reflux disease without esophagitis; Z87.891 Personal history of nicotine dependence; Z79.899 Other long term (current) drug therapy
CPT/HCPCS: 80053; 84484; 85025; 93005; 96365; J1885; J2765

== ENCOUNTER 2023-05-10 12:33 | Outpatient (CLI) | payer OTHER | END 2023-05-10 12:34 | disposition home or self-care (01) | LOC: BICRAD 12:33 | PROVIDERS: ATTEND Preventive Medicine Occupational Medicine | DX: M17.31 Unilateral post-traumatic osteoarthritis, right knee (principal); M25.761 Osteophyte, right knee; M76.891 Other specified enthesopathies of right lower limb, excluding foot; M25.861 Other specified joint disorders, right knee ==